=== PATIENT | male | born 1950 | race Caucasian/White ===

== ENCOUNTER → 2023-06-04 | Outpatient (CLI) | payer BC ==
--- NOTE | 2023-06-04 09:55 | Diagnostic Imaging Report ---
INDICATION: History of smoking. COMPARISON: None TECHNIQUE: Limited abdominal sonogram was performed to evaluate the abdominal aorta. FINDINGS: The abdominal aorta is normal in course and caliber. There is no evidence of aneurysm. The axial dimensions of the abdominal aorta, at the level of the renal arteries is approximately 2.2 x 2.8 cm. Peak systolic velocity at this level is 120 cm/sec. In the mid segment these are 2 x 2.2 cm and distally these are 2 x 2.1 cm. Peak systolic velocities are 141 cm/sec and 114 cm/sec, respectively. 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 The aortic bifurcation is unremarkable. The proximal portions of the right and left common iliac arteries are ectatic. Right common iliac artery measures 1.3 x 1.5 cm and the left measures 1.3 x 1.6 cm. There is no ascites. IMPRESSION: 1. Unremarkable abdominal aorta. No evidence of stenosis or aneurysm. Dictated by: Dictated on workstation # [id number]
== END ==
LOC: RAD 08:53
PROVIDERS: ATTEND Family Medicine
DX: N28.1 Cyst of kidney, acquired (principal); Z87.891 Personal history of nicotine dependence
CPT/HCPCS: 76775